=== PATIENT | female | born 1955 | race Caucasian/White ===

== ENCOUNTER 2016-05-25 12:56 | Emergency (ER) | payer MEDICARE, OTHER ==
[~2016-05-25 12:56] MED LIST: ASPIR 8181 MG PO; COREG3.125 MG PO; LASIX20 MG PO; LEVEMIR100 UNIT/1 SQ; LIPITOR40 MG PO; LISINOPRIL2.5 MG PO; PLAVIX75 MG PO; SYNTHROID300 MCG PO
== END 2016-05-25 13:52 | disposition home or self-care (01) ==
LOC: ER 12:56
DX: J06.9 Acute upper respiratory infection, unspecified (principal); J44.9 Chronic obstructive pulmonary disease, unspecified; F32.9 Major depressive disorder, single episode, unspecified; E03.9 Hypothyroidism, unspecified; I10 Essential (primary) hypertension; I25.10 Atherosclerotic heart disease of native coronary artery without angina pectoris; Z88.7 Allergy status to serum and vaccine; Z87.891 Personal history of nicotine dependence; Z95.5 Presence of coronary angioplasty implant and graft; Z98.51 Tubal ligation status; Z98.890 Other specified postprocedural states; Z79.82 Long term (current) use of aspirin; Z79.899 Other long term (current) drug therapy